=== PATIENT | female | born 1970 | race American Indian/Alaskan Native ===

== ENCOUNTER 2019-01-20 18:19 | Inpatient (IN) | payer MEDICAID ==
--- NOTE | 2019-01-20 19:13 | C.PDOC ---
History Of Present Illness 48 year old female w/ hx of etoh abuse, HTN, asthma, depression presents for alcohol detox. She notes being pre-screened. Last drink was 1400 today. She otherwise denies any complaints. No chest pain, shortness of breath, abdominal p ain, rashes, neck stiffness, fever, chills or night sweats. She denies any signs of withdrawal. She notes LMP was 2 weeks prior, normal. She denies any current depression, anxiety or hallucinations. She denies any GI or complaints. No fall or trauma. She denies any new medications. No other complaints Time Seen by Provider: 01/20/19 19:13 Chief Complaint (Nursing): Substance Abuse Past Medical History Vital Signs: Last Vital Signs Temp 97.2 F L 01/20/19 18:45 Pulse 70 01/20/19 18:45 Resp 16 01/20/19 18:45 BP 149/88 01/20/19 18:45 Pulse Ox 95 01/20/19 18:45 - Medical History PMH: Asthma, Depression, HTN Family History: States: Unknown Family Hx - Social History Hx Alcohol Use: Yes Hx Substance Use: No - Immunization History Hx Tetanus Toxoid Vaccination: Yes Hx Influenza Vaccination: Yes Hx Pneumococcal Vaccination: Yes Review Of Systems Constitutional: Negative for: Fever, Chills Eyes: Negative for: Pain ENT: Negative for: Ear Pain, Nose Congestion Cardiovascular: Negative for: Chest Pain, Palpitations, Edema Respiratory: Negative for: Cough, Shortness of Breath, SOB with Excertion Gastrointestinal: Negative for: Nausea, Vomiting, Abdominal Pain, Diarrhea, Melena, Hematochezia, Hematemesis Genitourinary: Negative for: Dysuria, Frequency, Incontinence, Hematuria, Vaginal Discharge, Vaginal Bleeding Musculoskeletal: Negative for: Neck Pain, Shoulder Pain, Back Pain, Hand Pain Skin: Negative for: Rash, Lesions Neurological: Negative for: Weakness, Numbness, Incoordination, Change in Speech, Confusion, Seizures, Altered Mental Status, Headache, Dizziness Physical Exam - Physical Exam Appears: Well, Non-toxic, No Acute Distress Skin: Normal Color, Warm, Dry Head: Atraumatic, Normacephalic, No Tenderness Eye(s): bilateral: PERRL, EOMI Ear(s): Bilateral: Normal Nose: Normal Oral Mucosa: Moist Tongue: Normal Appearing, No Swelling, No Lesions, No Bite, No Laceration Lips: Normal Appearing, No Swelling, No Contusion Teeth: Normal Dentition Gingiva: Normal Appearing Throat: Normal, No Erythema, No Exudate, No Drooling Neck: Normal, Normal ROM, Trachea Midline, Other (no meningeal signs) Chest: Symmetrical Cardiovascular: Rhythm Regular Respiratory: Normal Breath Sounds, No Decreased Breath Sounds, No Stridor, No Wheezing Gastrointestinal/Abdominal: Normal Exam, Soft, No Tenderness, No Organomegaly, No Mass, No Distention, No Guarding, No Rebound Back: Normal Inspection, No CVA Tenderness, No Vertebral Tenderness, No Decreased ROM, No Muscle Spasm, No Paraspinal Tenderness Extremity: Normal ROM, No Tenderness, No Pedal Edema, No Calf Tenderness, No Swelling Extremity: Bilateral: Atraumatic Neurological/Psych: Oriented x3, Normal Speech, Normal Cognition, No Cerebellar Signs, Normal Motor, Normal Sensation Gait: Steady ED Course And Treatment - Laboratory Results Result Diagrams: 01/20/19 19:31 01/20/19 19:31 O2 Sat by Pulse Oximetry: 95 Medical Decision Making Medical Decision Makin yr old F p/w concern for ETOH detox. No meningeal signs. AOx2, no signs of of withdrawal. Pending medical clear w/ labs, reassessment. 2007 Crisis to see pt pt in NAD. UTI noted on labs, rx w/ nitrofurantoin. No CVAT 2047 labs reviewed, largely unremakrable outside of UTI Pt denies any vaginal d/c. No abd pain. Repeat neuro exam, abd exam, back exam unremarkable. Medically clear. 2102 Appreciate consult w/ Crisis to admit to Dr. Harris: etoh use disorder. Pt in NAD, agreeable to plan. Disposition - Disposition Disposition: HOSPITALIZED Disposition Time: 20:48 Condition: GOOD Forms: [employer] (Armenian) - Clinical Impression Clinical Impression: Alcohol abuse, UTI (urinary tract infection)
[2019-01-20 19:44] LABS: BASO % 0.8 % (0.0-2.0); EOS % 0.7 % (0.0-4.0); HEMOGLOBIN 15.3 g/dL (11.0-16.0); LYMPH # 1.6 K/uL (1.0-4.3); LYMPH % 26.8 % (20.0-40.0); MEAN CELL VOLUME 91.3 fL (81.0-99.0); MEAN CORPUSCULAR HEMOGLOBIN 30.4 pg (27.0-31.0); MEAN CORPUSCULAR HGB CONC 33.3 g/dL (33.0-37.0); MEAN PLATELET VOLUME 9.2 fL (7.2-11.7); MONO # 0.4 K/uL (0.0-0.8); MONO % 7.2 % (0.0-10.0); NEUT # 3.9 K/uL (1.8-7.0); NEUT % 64.5 % (50.0-75.0); NRBC % 0.3 % (0.0-2.0); RBC 5.03 Mil/uL (3.80-5.20); RED CELL DISTRIBUTION WIDTH 14.9 % (11.5-14.5); WHITE BLOOD COUNT 6.1 K/uL (4.8-10.8)
[2019-01-20 20:01] LABS: BLOOD UREA NITROGEN 8 mg/dL (7-17); CALCIUM 9.6 mg/dl (8.6-10.4); GFR NON-AFRICAN AMERICAN > 60
[2019-01-20 20:04] LABS: SQUAMOUS EPITHIAL 4 /hpf (0-5); URINE BACTERIA FEW (<OCC); URINE BILIRUBIN NEGATIVE (NEGATIVE); URINE BLOOD NEGATIVE (NEGATIVE); URINE CLARITY Hazy (Clear); URINE COLOR Yellow (YELLOW); URINE GLUCOSE (UA) NORMAL (Normal); URINE LEUKOCYTE ESTERASE 3+ Leu/uL (Negative); URINE PROTEIN 1+ mg/dL (NEGATIVE)
[2019-01-20 20:05] LABS: ALB/GLOB RATIO 1.4 (1.0-2.1); ALBUMIN 4.9 g/dL (3.5-5.0); ALT/SGPT < 6 U/L (9-52); AST/SGOT 54 U/L (14-36)
[2019-01-20 20:10] LABS: ACETAMINOPHEN < 10.0 ug/mL (10.0-30.0); SALICYLATE < 1.0 mg/dL 1
[2019-01-20 20:15] LABS: BARBITURATES, UR NEGATIVE (NEGATIVE); BENZODIAZEPINES, UR NEGATIVE (NEGATIVE); OPIATES, UR NEGATIVE (NEGATIVE); PHENCYCLIDINE, UR NEGATIVE (NEGATIVE)
--- NOTE | 2019-01-21 00:44 | PCM.BM ---
<Lauren Khan F - Last Filed: 01/21/19 00:42> Treatment Plan Problems - Problems identified on initial assessmt Denial Date Initiated: 01/20/19 Time Initiated: 23:30 Assessment reference: NA Status: Active Knowledge Deficit: Alcohol Use Date Initiated: 01/20/19 Time Initiated: 23:30 Assessment reference: NA Status: Active Anxiety related to Substance Abuse Date Initiated: 01/20/19 Time Initiated: 23:30 Assessment reference: NA Status: Active Treatment assets and liabiliti Patient Assests: cooperative, ADL independent Patient Liabilities: substance abuse (alcohol) - Milieu Protocol Maintain good personal hygiene: daily Encourage regular showers, daily Remind patient to perform daily oral care, daily Assist patient to perform ADL's Conduct patient checks and document Observation sheet: Q15 minutes Maintain personal safety: every shift Educate patient to report safety concerns to staff, every shift Monitor environment for contraband/sharps Medication safety: Monitor for expected outcome, potential side effects: every shift, Assess barriers to learning: every shift, Assess readiness for medication education: every shift <Arun Lincoln - Last Filed: 01/23/19 13:43> - Diagnosis (1) Alcohol abuse Status: Acute Interventions: 01/23/19 13:43 * Assess 7x/week regarding severity of withdrawal * Educate regarding risks, benefits, side effects and alternatives of medications * Use Motivational Interviewing for abstinence * Use CBT for relapse prevention * Medication management for withdrawal symptoms * Encourage medication assisted treatment *
[2019-01-21] MEDS: Multiple Vitamins Tab PO SCH (10:48)
--- NOTE | 2019-01-21 22:56 | PCM.PSYCH ---
Initial Psychiatric Evaluation - Initial Psychiatric Evaluation Type of Admission: Voluntary Legal Status: Capacity Chief Complaint (in patient's own words): I need help for alcohol use. History of Present Illness and Precipitating Events: Patient is a 48 years old, , unemployed, -Beninese female with history of depression, on some antidepressants prescribed by her PCP was admitted due to withdrawing from alcohol. Alcohol: She started drinking alcohol at 12 years of age, increased gradually. Currently she was drinking fifth of liquor daily. Last drink was yesterday. Denied any previous detox or rehabs. Patient denied use of any drugs including cocaine, cannabis. Patient was born in [place], has 10th grade of education. 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 Patient lives with her sister and is supported by her sister. She is and has 2 children. Her son is 18 years of age and her daughter is 11 years of age, both live with her sister who has the custody. Current Medications: Active Medications Generic Name Dose Route Start Last Admin Trade Name Freq PRN Reason Stop Dose Admin Chlordiazepoxide 25 mg 01/21/19 09:29 Librium PO Q4H PRN Alcohol Withdrawal Chlordiazepoxide 25 mg 01/21/19 12:00 01/21/19 18:18 Librium PO 01/25/19 11:59 25 mg Q6 RONALD Administration Taper Clonidine HCl 0.1 mg 01/21/19 09:29 Catapres PO Q4H PRN Symptoms of alcohol withdrawl Folic Acid 1 mg 01/21/19 10:00 01/21/19 10:47 Folic Acid PO 1 mg DAILY RONALD Administration Gabapentin 300 mg 01/21/19 10:00 01/21/19 18:18 Neurontin PO 300 mg TID RONALD Administration Ibuprofen 400 mg 01/21/19 09:39 Motrin Tab PO Q4 PRN Pain, moderate (4-7) Multivitamins 1 tab 01/21/19 10:00 01/21/19 10:48 Hexavitamin PO 1 tab DAILY RONALD Administration Nitrofurantoin Macrocrystals 100 mg 01/21/19 09:45 01/21/19 21:18 Macrobid PO 01/25/19 20:00 100 mg Q12H RONALD Administration Protocol Thiamine HCl 100 mg 01/21/19 10:00 01/21/19 10:48 Vitamin B1 Tab PO 100 mg DAILY RONALD Administration Trazodone HCl 50 mg 01/21/19 09:29 01/21/19 21:18 Desyrel PO 50 mg HS PRN Administration Insomnia Past Psychiatric History - Past Psychiatric History Previous Treatment History: None History of Abuse: None reported History of ETOH/Drug Use: See HPI History of Family Illness: None reported Pertinent Medical Hx (Current Medical&Sleep Prob, Allergies): Allergies Allergy/AdvReac Type Severity Reaction Status Date / Time No Known Allergies Allergy Unverified 01/20/19 18:31 Hypertension Asthma Review of Systems - Psychiatric Psychiatric: As Per HPI, Depression Mental Status Examination - Personal Presentation Personal Presentation: Looks stated age - Affect Affect: Depressed - Motor Activity Motor Activity: Calm - Reliability in Providing Information Reliability in Providing Information: Fair - Speech Speech: Organized - Mood Mood: Depressed - Formal Thought Process Formal Thought Process: No Impairment - Hallucinations/Delusions Hallucinations: Other (None reported) Delusions: Other - Obsessions/Compulsions Obsessions: None Compulsions: None - Cognitive Functions Orientation: Person, Place, Situation, Time Sensorium: Alert Attention/Concentration: Attentive Abstract Thinking: [place] Estimate of Intelligence: Average Judgement: Intact, as evidence by: Insight regarding need for hospitalization Memory: Recent intact, as evidence by: Ability to recall events of the day, Remote intact, as evidenced by: Ability to recall historical events - Risk Risk: Withdrawal, Diminished functioning - Strength & Assets Inventory Strength & Assets Inventory: Family support, Cooperative - Limitations Limitations: Other (Lives with her sister) DSM 5 DX - DSM 5 DSM 5 Diagnosis: Alcohol withdrawal Alcohol use disorder severe Major depressive disorder recurrent moderate - Recommended/Plan of Treatment Treatment Recommendations and Plan of Treatment: Patient education. Supportive therapy. CBT for relapse prevention. [place] for abstinence. Will start Librium taper for alcohol withdrawal symptoms. We will start sertraline 50 mg for depression. Other PRN medications. Projected ELOS: 4-5 days Discharge Plan and Discharge Criteria: No withdrawals. No adverse effects from medications. - Smoking Cessation Smoking Cessation Initiated: No
[2019-01-22] MEDS: Multiple Vitamins Tab PO SCH (09:32)
--- NOTE | 2019-01-22 13:51 | RAD ---
Date of service: 01/22/2019 HISTORY: rehab placement COMPARISON: No prior. TECHNIQUE: Chest PA and lateral FINDINGS: LUNGS: Mild bibasilar atelectasis. PLEURA: No significant pleural effusion identified. No pneumothorax apparent. CARDIOVASCULAR: No aortic atherosclerotic calcification present. Normal cardiac size. No pulmonary vascular congestion. OSSEOUS STRUCTURES: Minor multilevel degenerative spondylosis of the thoracic spine VISUALIZED UPPER ABDOMEN: Cholecystectomy clips right upper quadrant of the abdomen. OTHER FINDINGS: None. IMPRESSION: Minor bibasilar atelectasis
[2019-01-23] MEDS: Multiple Vitamins Tab PO SCH (09:40)
--- NOTE | 2019-01-23 13:44 | PCM.PYCHPN ---
Psychiatric Progress Note - Psychiatric Progress Note Patient seen today, length of contact: 16 min Patient Chief Complaint: "Better now" Problems Identified/Issues Discussed: The pt is seen, chart reviewed, case discussed with staff. The pt is compliant with medications and reports no side-effects. Symptoms are improving but needs more time to stabilize. Pt attends groups and activities. Support given, psycho-education provided. After care discussed. Medication Change: Yes (detox changes daily) Medical Record Reviewed: Yes Mental Status Examination - Cognitive Function Orientation: Person, Place, Situation, Time Memory: Intact Attention: WNL Concentration: Poor Association: WNL Fund of Knowledge: Poor - Mood Mood: Depressed, Anxious - Affect Affect: Constricted - Speech Speech: Appropriate - Formal Thought Process Formal Thought Process: No Impairment - Suicidal Ideation Suicidal Ideation: No - Homicidal Ideation Homicidal Ideation: No Goal/Treatment Plan - Goal/Treatment Plan Need for Continued Stay: Discharge may exacerbated symptoms, Severe functional impairment Progress Toward Problem(s) and Goals/Treatment Plan: Taper with librium Gabapentin for augmentation if needed As needed medications All risks, benefits and alternatives of the meds discussed, and the pt agreed and understood. Attend groups and activities Supportive therapy and psychoeducation [place] for abstinence CBT for relapse prevention Encourage MAT Refer to rehab or IOP, and self-help groups Teach healthy lifestyle methods, i.e. diet, exercise, meditation Smoking cessation with CT Nicotine patch if needed Estimated Date of D/C: 01/24/19
[2019-01-24 08:42] VITALS: BP 120/90; PULSE 94; RESP 20; TEMP 97.6; O2SAT 100
--- NOTE | 2019-01-24 09:29 | PCM.PYCHDC ---
Mental Status Examination - Mental Status Examination Orientation: Person Discharge Summary - Discharge Note Consultations:: List each consultation separately and include: 1. Reason for request. 2. Findings. 3. Follow-up Summary of Hospital Course include:: 1. Description of specific treatment plan utilized for patients during their course of treatmen. 2. Summarize the time- course for resolution of acute symptoms and/or regressed behaviors. 3. Describe issues identified and worked on during hospitalization. 4. Describe medication utilized. 5. Describe medical problems identified and treated. 6. Reassessment of suicide risk Summary of Hospital Course: She will go to [facility] but needs to call as they were full, she is accepted. - Diagnosis (1) Alcohol abuse Current Visit: Yes Status: Acute - Final Diagnosis (DSM 5) Condition upon Discharge: GOOD Disposition: HOME/ ROUTINE Follow-up Treatment Plan: Taper with librium Gabapentin for augmentation if needed As needed medications All risks, benefits and alternatives of the meds discussed, and the pt agreed and understood. Attend groups and activities Supportive therapy and psychoeducation [place] for abstinence CBT for relapse prevention Encourage MAT Refer to rehab or IOP, and self-help groups Teach healthy lifestyle methods, i.e. diet, exercise, meditation Smoking cessation with [place] Nicotine patch if needed Prescriptions/Medication Reconciliation: Gabapentin [Neurontin] 300 mg PO TID #90 cap Nitrofurantoin Macrocrystals [Macrobid] 100 mg PO Q12H #7 cap traZODone [Desyrel] 50 mg PO HS PRN #30 tab PRN Reason: Insomnia
[2019-01-24] MEDS: Multiple Vitamins Tab PO SCH (09:38)
[2019-01-24] MEDS ORDERED: Pneumococcal 23-Valent Vaccine IM ONE (11:00)
[2019-01-24] MEDS ORDERED: Influenza Vaccine 60 mcg/0.5 mL SYR (4YR UP) IM ONE (11:00)
== END 2019-01-24 10:45 | disposition home or self-care (01) | DRG 772 ==
LOC: C.ER 18:19 → C.7D 21:04
PROC: HZ2ZZZZ Detoxification Services for Substance Abuse Treatment (ICD-10-PCS; principal; 2019-01-20)
PROC: HZ59ZZZ Individual Psychotherapy for Substance Abuse Treatment, Supportive (ICD-10-PCS; 2019-01-20)
PROC: GZ3ZZZZ Medication Management (ICD-10-PCS; 2019-01-20)
PROC: HZ59ZZZ Individual Psychotherapy for Substance Abuse Treatment, Supportive (ICD-10-PCS; 2019-01-20)
DX: F10.230 Alcohol dependence with withdrawal, uncomplicated (principal); F33.1 Major depressive disorder, recurrent, moderate; F17.210 Nicotine dependence, cigarettes, uncomplicated; N39.0 Urinary tract infection, site not specified; I10 Essential (primary) hypertension; J45.909 Unspecified asthma, uncomplicated